=== PATIENT | male | born 2000 | race Caucasian/White ===

== ENCOUNTER 2025-05-06 07:41 | Emergency (ER) | payer BC, MEDICARE, MEDICAID ==
[~2025-05-06] VITALS: Ht 180.3 cm; Wt 118.4 kg
[2025-05-06] MEDS: ONDANSETRON 4MG 2ML VIAL IV ONE (09:05)
[2025-05-06] MEDS: MORPHINE 2 MG/ML 1 ML VIAL IV PRN (09:08)
[2025-05-06 09:10] LABS: BASO # 0.1 10^3/uL (0.0-0.2); BASO % 0.4 % (0.0-1.0); EOS # 0.2 10^3/uL (0.0-0.5); EOS % 1.6 % (0.0-3.0); LYMPH # 2.0 10^3/uL (1.5-5.0); LYMPH % 16.9 % (24.0-44.0); MONO # 0.8 10^3/uL (0.0-0.8); MONO % 6.5 % (2.0-8.0); NEUTROPHILS # 8.6 10^3/uL (1.5-8.5); NEUTROPHILS % 73.2 % (36.0-66.0); PLATELET COUNT, AUTOMATED 203 10^3/uL (150-450)
[2025-05-06] MEDS: ACETAMINOPHEN *IV* 1,000 MG in IV 1 EA IV ONE (09:11)
[2025-05-06 09:31] LABS: ALT/SGPT 50 U/L (7.0-40); AST/SGOT 21 U/L (<34); CALCIUM LEVEL 9.0 MG/DL (8.5-10.1); CARBON DIOXIDE LEVEL 21 MMOL/L (20-31); CHLORIDE LEVEL 107 MMOL/L (98-107); CREATININE FOR GFR 1.00 MG/DL (0.70-1.30); GLOMERULAR FILTRATION RATE > 90.0 (>60); POTASSIUM SERUM 3.9 MMOL/L (3.5-5.1); SODIUM LEVEL 142 MMOL/L (136-145)
[2025-05-06] MEDS ORDERED: ISOVUE-370 76% 100 ML VIAL As Ordered ONE (09:37)
[2025-05-06] MEDS: NS (Normal Saline) 0.9% 1,000 ML IV ONE ×2 (09:40→10:09)
[2025-05-06] MEDS: PIPERACILLIN/TAZOBACTAM SOD 4.5 GM in DEXTROSE 5% (D5W) ADV/MINI-BAG 50 ML IV ONE (10:12)
[2025-05-06] MEDS: KETOROLAC 30 MG/ML 1 ML VIAL IV ONE (12:01)
[2025-05-06 12:18] LABS: KETONE, URINE AUTO RFX NEGATIVE (NEGATIVE); LEUKOCYTE ESTERASE UR AUTO RFX NEGATIVE (NEGATIVE); MUCUS, URINE RFX SMALL (NEGATIVE); NITRITE, URINE AUTO RFX NEGATIVE (NEGATIVE); RBC, URINE AUTO RFX 159 /HPF (0-3); SQUAM EPITHELIAL CELL UR AURFX 0 /HPF (0-6); WBC, URINE AUTO RFX 1 /HPF (0-3); YEAST LIKE CELL URINE AUTO RFX SMALL
[2025-05-06] MEDS ORDERED: IBUP600T42 PO (14:26)
[2025-05-06] MEDS ORDERED: PERC5TAB12 PO (14:27)
[2025-05-06] MEDS ORDERED: TAMS-18 PO (14:28)
[2025-05-06 14:44] VITALS: BP 120/67; TEMP 98; O2SAT 97
== END 2025-05-06 14:50 | disposition home or self-care (01) ==
LOC: M ED 07:41
DX: N20.1 Calculus of ureter (principal); E03.9 Hypothyroidism, unspecified; F84.0 Autistic disorder
CPT/HCPCS: 36415; 74178; 76870; 80053; 81001; 83605; 83690; 84145; 85025; 87040; 93041; 93976; 96361; 96365; 96375; 96376; 99285; J0131; J1885; J2405; J2543; Q9967